=== PATIENT | female | born 1975 | race Caucasian/White ===

== ENCOUNTER → 2017-06-15 | Outpatient (CLI) | payer OTHER ==
[~2017-06-15] VITALS: Ht 165.1 cm; Wt 76.7 kg
[~2017-06-15] MED LIST: B6-FOLIC ACID1 CAP PO; PEPCID 20MG TAB20 MG; PRENATAL1 TA1 PO
[2017-06-15 12:44] VITALS: BP 119/88; PULSE 89
[2017-06-15 13:30] VITALS: BP 131/93; PULSE 88
== END ==
LOC: COL.RAD 12:30
DX: M48.06 Spinal stenosis, lumbar region (principal); M51.17 Intervertebral disc disorders with radiculopathy, lumbosacral region
CPT/HCPCS: J3301

== ENCOUNTER → 2018-04-13 | Outpatient (CLI) | payer OTHER | LOC: MC.RAD 10:00 | DX: Z12.31 Encounter for screening mammogram for malignant neoplasm of breast (principal); Z98.82 Breast implant status ==

== ENCOUNTER → 2019-08-23 | Outpatient (CLI) | payer OTHER | LOC: MC.RAD 10:27 | DX: Z12.31 Encounter for screening mammogram for malignant neoplasm of breast (principal) ==

== ENCOUNTER → 2020-08-27 | Outpatient (CLI) | payer OTHER | LOC: MC.RAD 10:06 | DX: Z12.31 Encounter for screening mammogram for malignant neoplasm of breast (principal); N64.89 Other specified disorders of breast; Z98.82 Breast implant status ==

== ENCOUNTER → 2020-08-30 | Outpatient (CLI) | payer OTHER | LOC: MC.RAD 14:00 | DX: N64.89 Other specified disorders of breast (principal) ==

== ENCOUNTER → 2021-09-23 | Outpatient (CLI) | payer OTHER | LOC: MC.RAD 11:15 | DX: Z12.31 Encounter for screening mammogram for malignant neoplasm of breast (principal); N63.10 Unspecified lump in the right breast, unspecified quadrant; Z98.82 Breast implant status ==

== ENCOUNTER → 2021-10-03 | Outpatient (CLI) | payer OTHER | LOC: MC.RAD 07:40 | DX: N63.10 Unspecified lump in the right breast, unspecified quadrant (principal) ==

== ENCOUNTER → 2021-10-08 | Outpatient (CLI) | payer OTHER | LOC: MC.RAD 09:49 | DX: N60.31 Fibrosclerosis of right breast (principal) ==

== ENCOUNTER → 2023-10-07 | Outpatient (CLI) | payer OTHER | LOC: MC.RAD 09:19 | DX: Z12.31 Encounter for screening mammogram for malignant neoplasm of breast (principal) ==